=== PATIENT | male | born 1985 | race Caucasian/White ===

== ENCOUNTER 2018-08-06 21:19 | Emergency (ER) | payer MEDICAID ==
[~2018-08-06] VITALS: Ht 170.2 cm; Wt 68.0 kg
[2018-08-06] MEDS ORDERED: IBUP800 PO (22:49)
[2018-08-06] MEDS ORDERED: Augmentin 875-1 EACH PO (22:49)
== END 2018-08-06 23:11 | disposition home or self-care (01) ==
LOC: ER 21:19
DX: S81.852A Open bite, left lower leg, initial encounter (principal); W54.0XXA Bitten by dog, initial encounter
CPT/HCPCS: 90471; 90714; 99283-25; A9270-GY